=== PATIENT | female | born 1985 | race Caucasian/White ===

== ENCOUNTER 2020-10-03 20:43 | Emergency (ER) | payer OTHER, SELFPAY ==
--- NOTE | ~2020-10-03 | XR_ITS ---
EXAMINATION: XR wrist RT 2V INDICATION: Right wrist pain, initial encounter TECHNIQUE: Two views of the right wrist are obtained. COMPARISON: 06/30/2007 FINDINGS: There is a comminuted intra-articular fracture of the distal radius. The distal radius frac ture fragment is dorsally displaced and overriding. The carpal bones of the wrist are also dorsally d isplaced and overriding along with the distal radius fracture fragment. There appears to be a transve rse fracture of the ulnar styloid. IMPRESSION: 1. Comminuted distal radius fracture with dorsal displacement and overriding of the distal radius fra cture fragment as well as the carpal bones. Reviewed, dictated and finalized at location A. IMPRESSION: 1. Comminuted distal radius fracture with dorsal displacement and overriding of the distal radius fracture fragment as well as the carpal bones.
--- NOTE | ~2020-10-03 | XR_ITS ---
EXAMINATION: XR wrist RT 2V EXAM DATE: 10/03/2020 22:50 INDICATION: Post reduction. TECHNIQUE: Frontal and lateral projections of the right wrist Comparison is made to prior examinatio n from earlier same date. FINDINGS: There is been significant interval reduction in the previously seen right radial distal me taphyseal fracture. There is still mild posterior dislocation and angulation. A cast has been applied . IMPRESSION: Right radial distal metaphyseal reduction, casting. Reviewed, dictated and finalized at location A.
[2020-10-03 20:44] VITALS: BP 110/66; PULSE 80; RESP 20; TEMP 36; O2SAT 100
[2020-10-03 21:53] VITALS: BP 111/57; PULSE 80; RESP 18; TEMP 36.9; O2SAT 100
--- NOTE | 2020-10-03 21:55 | ED.UPPEXIN ---
HPI - Extremity Injury (Upper) General Chief Complaint: Extremity Injury, Upper Stated Complaint: Right wrist injury Time Seen by Provider: 10/03/20 21:33 Source: patient Mode of arrival: ambulatory Limitations: no limitations History of Present Illness HPI narrative: Patient is a 35-year-old female complaining of right wrist pain after she tripped and fell while rollerskating. Patient states her pain is a 9 out of 10, aching, nonradiating. Patient denies any other injuries. Patient denies any head, neck, back or any other extremity pain/injury. Related Data Home Medications Medication Instructions Recorded Confirmed escitalopram oxalate mg 10/03/20 Allergies Allergy/AdvReac Type Severity Reaction Status Date / Time No Known Allergies Allergy Verified 10/03/20 20:48 Review of Systems Review of Systems: All systems reviewed & are unremarkable except as noted in HPI and below Constitutional: Constitutional: Denies body ache(s), Denies chills, Denies excessive sweating, Denies fatigue, Denies fever(s), Denies headache(s), Denies lethargy, Denies malaise, Denies weakness and Denies weight loss Eyes: Eyes: Denies blurry vision, Denies change in vision and Denies loss of vision ENT: Denies dizziness, Denies ear discharge, Denies headache(s), Denies lip swelling, Denies epistaxis, Denies nasal congestion, Denies neck pain, Denies throat swelling and Denies tongue swelling Cardiovascular: Cardiovascular: Denies chest pain, Denies chest pain at rest, Denies chest pain with activity, Denies diaphoresis, Denies rapid heart rate, Denies edema, Denies irregular heart rhythm, Denies lightheadedness, Denies palpitations, Denies dyspnea and Denies dyspnea on exertion Respiratory: Respiratory: Denies chest congestion, Denies cough, Denies hemoptysis, Denies dyspnea and Denies dyspnea on exertion Gastrointestinal: Gastrointestinal: Denies abdominal pain, Denies melena, Denies hematochezia, Denies diarrhea, Denies nausea, Denies vomiting and Denies hematemesis Musculoskeletal: Musculoskeletal: Denies abnormal gait, Denies deformity, Denies neck pain and Denies numbness Neurologic: Denies Abnormal speech present, Denies abnormal gait, Denies confusion, Denies dizziness, Denies headache(s), Denies focal weakness, Denies loss of vision, Denies numbness, Denies Other visual disturbances, Denies Sensory deficit (Neuro) and Denies weakness Psychiatric: Psychiatric: Denies confusion, Denies depression, Denies auditory hallucinations, Denies homicidal ideation and Denies suicidal ideation Endocrine: Endocrine: Denies cold intolerance, Denies excessive sweating, Denies fatigue, Denies heat intolerance and Denies palpitations Hematologic/Lymphatic: Hematologic/Lymphatic: Denies easy bleeding and Denies easy bruising Allergic/Immunologic: Allergic/Immunologic: Denies lip swelling, Denies throat swelling and Denies tongue swelling PMFSH Comments Past medical history: None Family history: Noncontributory Social history: Non-smoker no EtOH or drug use. Exam Const: Other: Mild distress due to pain HENMT: Head: normal to inspection Eyes: Conjunctivae: conjunctivae normal Neck: Neck: normal visual inspection Resp: Effort & Inspection: normal respiratory effort Skin: General skin exam: normal color Rashes: no rashes Neuro: General: patient oriented x3 and moves all extremities Speech: normal speech Gait exam (Neuro): Normal gait present Extrem: Other: Right wrist deformity, swelling, decreased range of motion due to pain, pain on palpation. Neurovascular is intact bilateral upper extremities. Course Vital Signs Vital signs: Vital Signs Temperature 36.0 C L 10/03/20 20:44 Pulse Rate 80 10/03/20 20:44 Respiratory Rate 20 10/03/20 20:44 Blood Pressure 110/66 10/03/20 20:44 Pulse Oximetry 100 10/03/20 20:44 Temperature 36.9 C 10/03/20 21:53 Pulse Rate 80 10/03/20 21:53 Respiratory Rate 18 10/03/20 21
[2020-10-03] MEDS: HYDROcodone/acetaminophen (*CRX) 5-325 MG TABLET 2 TAB PO (22:09)
[2020-10-03] MEDS: KETOROLAC 30 MG/ML VIAL (*BKC) IM (22:09)
[2020-10-03 23:15] VITALS: BP 109/62; PULSE 84; RESP 18; TEMP 36.6; O2SAT 99
== END 2020-10-03 23:15 | disposition home or self-care (01) ==
PROVIDERS: Emergency Provider Emergency Medicine
DX: S52.571A Other intraarticular fracture of lower end of right radius, initial encounter for closed fracture (principal); S62.101A Fracture of unspecified carpal bone, right wrist, initial encounter for closed fracture; S52.611A Displaced fracture of right ulna styloid process, initial encounter for closed fracture; V00.121A Fall from non-in-line roller-skates, initial encounter; Y93.51 Activity, roller skating (inline) and skateboarding
CPT/HCPCS: 25605; 73100; 96372; 99285; A4565; A9270; J1885

== ENCOUNTER → 2020-10-07 01:26 | Outpatient (CLI) | payer OTHER, SELFPAY ==
[2020-10-07 21:08] LABS: SARS-CoV-2 RNA PCR Negative
== END ==
PROVIDERS: Visit Provider Orthopaedic Surgery
DX: Z01.812 Encounter for preprocedural laboratory examination (principal); Z20.822 Contact with and (suspected) exposure to COVID-19
CPT/HCPCS: C9803; U0003; U0005

== ENCOUNTER 2020-10-08 01:29 | Day surgery (SDC) | payer OTHER, SELFPAY ==
[2020-10-06 15:29] VITALS: BMI 21.7
[2020-10-08] VITALS (12 sets, daily range): BP systolic 100–116; BP diastolic 59–79; PULSE 60–80; RESP 11–20; TEMP 36.2–37.7; O2SAT 96–100
--- NOTE | ~2020-10-08 | XR_ITS ---
EXAMINATION: XR surgery orthopedic EXAM DATE: 10/08/2020 13:51 INDICATION: Right distal radial metaphyseal fracture, open reduction internal fixation. TECHNIQUE: Fluoroscopy used during XR surgery orthopedic performed by Dr. Jareth Lopez MD. Rad iologist was not present for the imaging or procedure. Total fluoroscopic time of 21 seconds The D AP for this procedure was 0.009 mGym2. A total of 3 images obtained for the exam. Correlation made to right wrist x-ray from 10/06. FINDINGS: Images demonstrate interval reduction in previously seen mildly posteriorly displaced righ t radial distal metaphyseal fracture. There is a volar plate with supporting screws in expected posit ion. Correlate with procedure note. IMPRESSION: Fluoroscopy used during right radial distal metaphyseal ORIF. Reviewed, dictated and finalized at location A.
--- NOTE | 2020-10-08 07:19 | WPDHPUPDATE1 ---
History and Physical Update Update Date/Time: 10/08/20 07:19 History and Physical has been reviewed, including an updated exam of the patient. There are NO changes in the patient's condition. Covid test negative. Risks, benefits, and alternatives have been discussed and questions answered. Patient agrees to proceed with procedure.
[2020-10-08] MEDS: ACETAMINOPHEN 500 MG TABLET 1000 MG PO (11:40)
[2020-10-08] MEDS: LACTATED RINGERS 1,000 ML 30 ML IV CONT ×2 (11:55→14:05)
[2020-10-08] MEDS: KETOROLAC 15 MG/ML VIAL (*BKC) IV PUSH (11:59)
--- NOTE | 2020-10-08 12:27 | WPDANESEPPF ---
Anes - Initial Pre Proc Eval Procedure: Operation Date: 10/08/20 12:30 Proposed Procedures p Open Reduction Internal Fixation Right Wrist - Jareth Lopez MD Date/Time: 10/08/20 12:27 Surgeon: Jareth Lopez MD Pre Op Diagnosis: Right Wrist Fx Patient Data Age: 35 Gender: F Height: 5 ft 6 in Weight: 68.4 kg Last Vital Signs Temp 37.7 C H 10/08/20 11:23 Pulse 68 10/08/20 11:23 Resp 16 10/08/20 11:23 BP 106/61 10/08/20 11:23 Pulse Ox 100 10/08/20 11:23 Allergies Allergy/AdvReac Type Severity Reaction Status Date / Time No Known Allergies Allergy Verified 10/06/20 13:32 Home Medications Medication Instructions Recorded Confirmed Type hydrocodone-acetaminophen 1 tablet PO Q6H PRN 10/06/20 10/08/20 History ibuprofen 400 mg PO Q6H 10/08/20 10/08/20 History Patient hx anesthesia problems: none Family hx anesthesia problems: none [facility] Past Medical History Medical History (Updated 10/08/20 @ 12:27 by Emre Ram MD) Chiari malformation Fracture of radius, distal, right, closed Surgical History Surgical History History of x4 Social History Social History Smoking status: Never smoker Alcohol intake: current Substance use: never Substance use type: does not use Living arrangements: with family Spiritual care concerns: No Anes - Eval Final PreProcedure Day of Procedure 10/08/20 12:27 Patient weight: normal Heart: regular rate and rhythm Lungs: clear to auscultation Airway: Mallampati scale class 1 Neurological: alert and oriented Last oral intake: >/= 8 hours ASA classification: II Emergent: no Anesthetic plan: proceed Anesthesia type and monitoring: general LMA and standard monitoring Informed Consent: The patient's anesthetic plan and its attendant risks and benefits were discussed with the patient/family/POA. Questions were solicited and answers provided to the satisfaction of the patient/family/POA.
[2020-10-08] MEDS: ceFAZolin 2 GM/D5W 50 ML 2 GM/50 ML BAG IVPB (12:56)
[2020-10-08] MEDS: BUPIVACAINE HCL 0.5% PF 30 ML VIAL INFILTRATE (13:13)
--- NOTE | 2020-10-08 13:53 | SUR.OPER ---
BIOMET DVR A SYSTEM RIGHT WRIST DVR ANATOMIC NARW SHORT RIGHT SMOOTH PEGS [id number] CORTICAL SCREWS [id number] 1
[2020-10-08] MEDS: fentaNYL CITRATE INJ (*CRX) 100 MCG/2 ML VIAL 25 MCG IV PUSH ×10 (14:29→15:25)
--- NOTE | 2020-10-08 14:32 | P.OP_ITS ---
Procedure Note - Detailed Date of procedure: 10/08/20 Pre-op diagnosis: Right Wrist Fx Comminuted fracture right distal radius Post-op diagnosis: same Procedure performed: open reduction internal fixation right distal radius, extra-articular Description of procedure: ndications: Patient is a 35-year-old woman who fell onto right outstretched hand and sustained a distal radius fracture with extra- articular extension and comminution. Fracture has displacement and angulation, unacceptable alignment. The patient presents for operative treatment. Full discussion of risks, benefits and alternatives had with the patient. Patient verbalized understanding and wishes to proceed. What was done: After informed consent the operative extremity was marked in the preoperative holding area. Patient received intravenous antibiotics. Patient taken to the operating room where they underwent general anesthesia. Positioned supine on operating table. Time-out performed confirming the patient, patient's site of surgery and the plan. Right upper extremity prepped and draped in the usual sterile surgical fashion using a ChloraPrep skin solution. Hand and wrist exsanguinated and arm tourniquet inflated to 225 mmHg. Standard volar flexor carpi radialis incision utilized. Fifteen blade knife used to make longitudinal incision. Flexor carpi radialis tendon identified tendon sheath incised in line with skin incision. Tendon retracted to protect the neurovascular elements. Floor of the tendon sheath incised with a 15 blade knife. Flexor pollicis retracted medial. pronator quadratus then divided off the watershed line and reflected ulnarward to expose the distal radius and the fracture. Fracture was then reduced provisionally pinned. Image intensification confirm reduction. Fixation achieved with the distal radius volar plate. This was provisionally pinned into place and confirmed with image intensification. Fixation to the proximal fragment with a 3.5 mm screw. Distal fracture fixation achieved with 2.0 mm locking pegs and 2.0 mm fully threaded locking screws for the radial styloid. Fixation was then completed proximally with the remaining 3.5 mm screws. Final reduction of the fracture, alignment of the wrist joint and placement of the hardware verified with image intensification. Wound thoroughly irrigated with antibiotic solution. Pronator repaired with 3 0 Monocryl interrupted suture. Skin closed with interrupted subcutaneous 000 Monocryl interrupted suture and running 000 Monocryl subcuticular stitch. Local anesthetic with 0.5% Marcaine. Sterile dressing applied. Padded dressing and splint then applied. Tourniquet released and good capillary refill noted in the fingers and thumb. Patient awoke from anesthesia, extubated and taken to the recovery room in stable condition. All sponge and instrument counts correct at the end of case. Implants: Biomet volar distal radius plate with locking pegs and screws Anesthesia: GLMA Surgeon: Jareth Loepz MD Catheter Finisher And Inspector: 1st virtual assistant for advertisers Estimated blood loss (mL): 10 Tourniquet time (min): 45 Drains: No Packing: No Pathology: none sent Complications: None Condition: stable Disposition: PACU
[2020-10-08] MEDS: oxyCODONE HCL (*CRX) 5 MG TAB IR PO (15:55)
== END 2020-10-08 16:52 | disposition home or self-care (01) ==
PROVIDERS: Visit Provider Orthopaedic Surgery
PROC: (CPT 25575; principal; 2020-10-08 12:30)
DX: S52.551A Other extraarticular fracture of lower end of right radius, initial encounter for closed fracture (principal); W19.XXXA Unspecified fall, initial encounter
CPT/HCPCS: 25607; A9270; C1713; J0690; J1100; J1170; J1885; J2250; J2405; J2704; J3010; J7120

== ENCOUNTER 2022-01-10 22:46 | Emergency (ER) | payer OTHER, SELFPAY ==
--- NOTE | ~2022-01-10 | XR_ITS ---
EXAMINATION: XR wrist RT min 3V DATE: 01/10/2022 23:02 INDICATION: Right wrist pain TECHNIQUE: Posteroanterior, ulnar deviation, oblique, and lateral views of the right wrist were obtai filiberto. COMPARISON: 10/06/2021 FINDINGS: Old healed distal right radial fracture which is in near-anatomic alignment with volar T plate and sc rew fixation. No surrounding lucency to suggest loosening or infection. No new fractures identified. Joint spaces are normal. No erosions or periosteal reaction. IMPRESSION: 1. Internally fixed old distal right radial fracture which is healed in essentially anatomic alignmen t. No acute osseous abnormality. Reviewed, dictated and finalized at location A. IMPRESSION: 1. Internally fixed old distal right radial fracture which is healed in essenti ally anatomic alignment. No acute osseous abnormality.
--- NOTE | 2022-01-11 01:42 | ED_ITS ---
HPI - Extremity Injury (Upper) General Chief Complaint: Extremity Injury, Upper Stated Complaint: right wrist pain Time Seen by Provider: 01/11/22 01:03 Source: patient Mode of arrival: ambulatory Limitations: no limitations History of Present Illness HPI narrative: This is a 36 year old female that presents to the ER for right wrist pain. Reports history of a fracture in this wrist for which she had ORIF with Dr. Lopez. Reports she was having similar pain in September of this year and had a steroid injection with little relief. She has been taking Ibuprofen as home with little relief. No new injury or trauma. Denies decreased range of motion or numbness. Related Data Allergies Allergy/AdvReac Type Severity Reaction Status Date / Time No Known Allergies Allergy Verified 01/10/22 22:46 Review of Systems Review of Systems: CONSTITUTIONAL: Denies fever SKIN: Denies rash MUSCULOSKELETAL: Reports joint pain, and myalgia. NEUROLOGIC: Denies numbness All systems reviewed & are unremarkable except as noted in HPI and below PMFSH Past Medical History Medical History (Updated 01/11/22 @ 01:49 by Una Corado PA-C) Chiari malformation De Quervain's tenosynovitis, right Fracture of radius, distal, right, closed Surgical History Surgical History History of x4 Social History Social History Alcohol intake: current Alcohol use details: Socially Substance use: never Substance use type: does not use Spiritual care concerns: No Exam Narrative: GENERAL: Well-appearing, well-nourished, and in no acute distress. HEAD: Normocephalic, atraumatic. EYES: EOMI. EXTREMITIES: Normal range of motion. No edema, erythema or warmth. Normal radial pulse. Normal sensation SKIN: Warm, dry, no rash. NEURO: No focal deficits. Alert and oriented x3. PSYCH: Normal mood and affect MDM - Extremity Injury (Upper) MDM Narrative Medical decision making narrative: Patient presents to the emergency department for right wrist pain. History of previous surgery on this wrist. She follows with Dr. Lopez. No new injury or trauma. She is neurovascularly intact. No erythema, edema, or warmth of the wrist. Will be given a short course of pain medication and instructed to follow-up with her orthopedic doctor. She was given warnings to return to the ER Imaging Data My impression: Right wrist x-ray: No acute osseous abnormalities Critical Care Time Critical Care Time Critical Care Time: No Discharge Plan Discharge Clinical Impression: Acute pain of right wrist Patient Disposition: Home, Self-Care Condition: Stable Instructions: Wrist Injury (ED) Additional Instructions: Return to the emergency department if you experience fever, redness and swelling of your wrist, numbness, or any other symptoms that are concerning to you Rest. Ice to the area. [id number] pain medication as needed. Prescribed pain medication as needed Follow-up with your orthopedic doctor Prescriptions: New hydrocodone-acetaminophen 5-325 mg tablet 1 tablet PO Q6H PRN (Reason: pain) Qty: 14 0RF Follow-up/Referrals: Jareth Lopez MD [Physician] - 3 Days PHYSICIAN,PRODUCT SAFETY ENGINEER [Primary Care Provider] -
[2022-01-11 02:00] VITALS: BP 136/79; PULSE 72; RESP 18; O2SAT 98
== END 2022-01-11 02:03 | disposition home or self-care (01) ==
PROVIDERS: Emergency Provider Emergency Medicine
DX: M25.531 Pain in right wrist (principal)
CPT/HCPCS: 73110; 99283

== ENCOUNTER 2022-07-27 10:51 | Emergency (ER) | payer OTHER, SELFPAY ==
--- NOTE | ~2022-07-27 | CT_ITS ---
EXAMINATION: CT brain wo con DATE: 07/27/2022 12:15 INDICATION: Headache TECHNIQUE: Computed tomography (CT) of the head was performed without intravenous contrast. Sagittal and coronal reconstructions were performed. The mA was adjusted according to patient size. Iterative reconstruction technique was employed. The dose-length product was 605.33 mGy-cm. COMPARISON: None FINDINGS: No acute intracranial hemorrhage, acute infarction or abnormal extra axial fluid collection. Ventricl es are normal and symmetric. No mass/mass effect. The orbits, paranasal sinuses and mastoid air cells are normal. IMPRESSION: 1. Normal head CT Reviewed, dictated and finalized at location A. E WORK CHECKER IMPRESSION: 1. Normal head CT
--- NOTE | ~2022-07-27 | XR_ITS ---
EXAMINATION: XR hand RT min 3V INDICATION: Right hand pain TECHNIQUE: Three views of the right hand are obtained. COMPARISON: 01/10/2022 FINDINGS: There is soft tissue swelling of the second and fourth fingers. No underlying osseous abnor mality is identified. Again seen is volar plate and screw fixation of the distal radius. No acute fra cture is identified. IMPRESSION: 1. Soft tissue swelling of the second and fourth fingers without underlying osseous abnormality ident ified. Reviewed, dictated and finalized at location B. ING TEACHER IMPRESSION: 1. Soft tissue swelling of the second and fourth fingers without underlying oss eous abnormality identified.
[2022-07-27 11:00] VITALS: BP 131/69; PULSE 67; RESP 18; TEMP 36.4; O2SAT 100
[2022-07-27 11:39] VITALS: BP 131/69; PULSE 67; RESP 18; TEMP 36.4; O2SAT 100
--- NOTE | 2022-07-27 11:42 | ED.HA ---
HPI - Headache General Chief Complaint: Headache <Una Corado PA-C - Last Filed: 07/27/22 14:51> Stated Complaint: head pain since monday <SAMEER Marquez Last Filed: 07/27/22 14:51> Time Seen by Provider: 07/27/22 11:21 <SAMEER Marquez Last Filed: 07/27/22 14:51> Source: patient <SAMEER Marquez Last Filed: 07/27/22 14:51> Mode of arrival: ambulatory <SAMEER Marquez Last Filed: 07/27/22 14:51> Limitations: no limitations <SAMEER Marquez Last Filed: 07/27/22 14:51> History of Present Illness HPI Narrative: This is a 37-year-old female that presents to the emergency department for headache ongoing over the last 2 days. No recent injuries or trauma. Reports the pain is sharp and constant in nature. It is somewhat relieved with ibuprofen. She has history of Chiari malformation and does have headaches chronically, although this 1 was a little different for her. She [facility] to see a neurologist for this [facility], but no longer follows up. Also reports she has had some swelling in her right second and fourth fingers over the last week. No recent injuries or trauma. They are not painful. She reports some mild itching. Denies fever, rash, redness, visual changes, vomiting, numbness, or weakness. <Una Corado PA-C - Last Filed: 07/27/22 14:51> Related Data Allergies/Adverse Reactions: Allergies Allergy/AdvReac Type Severity Reaction Status Date / Time No Known Allergies Allergy Verified 07/27/22 11:49 <SAMEER Marquez Last Filed: 07/27/22 14:51> Review of Systems Review of Systems: CONSTITUTIONAL: Denies fever EYES: Denies visual changes GASTROINTESTINAL: Denies vomiting SKIN: Denies rash NEUROLOGIC: Reports headache. Denies numbness, or weakness. <SAMEER Marquez Last Filed: 07/27/22 14:51> All systems reviewed & are unremarkable except as noted in HPI and below <Una Corado PA-C - Last Filed: 07/27/22 14:51> [facility] Past Medical History Medical History: Medical History (Updated 07/28/22 @ 00:00 by Gee Yoon) Chiari malformation De Quervain's tenosynovitis, right Fracture of radius, distal, right, closed <Una Corado PA-C - Last Filed: 07/27/22 14:51> Surgical History Surgical History: Surgical History History of x4 <SAMEER Marquez Last Filed: 07/27/22 14:51> Social History Social History: Social History Alcohol intake: current Alcohol use details: Socially Substance use: never Substance use type: does not use Living arrangements: with family Spiritual care concerns: No <Una Corado PA-C - Last Filed: 07/27/22 14:51> Exam Narrative: GENERAL: Well-appearing, well-nourished, and in no acute distress. HEAD: Normocephalic, atraumatic. EYES: PERRLA and EOMI. ENT: Nares clear, no rhinorrhea or epistaxis. Mucous membranes moist. Oropharynx without tonsillar hypertrophy exudate or other lesions. Bilateral TMs pearly lane non-bulging NECK: Supple. No adenopathy or masses. CHEST: Clear to auscultation. No respiratory distress. No wheezes rales or rhonchi HEART: Regular rate and rhythm. No murmur heard. Normal peripheral pulses. ABDOMEN: Soft, nontender, nondistended, normal active bowel sounds. EXTREMITIES: Normal range of motion. Very mild edema noted about the right second and fourth fingers about the PIP joints. No erythema or warmth. Strength equal in bilateral upper and lower extremities (5/5) SKIN: Warm, dry, no rash. NEURO: No focal deficits. Alert and oriented x3. Cranial nerves II through XII grossly intact PSYCH: Normal mood and affect <Una Corado PA-C - Last Filed: 07/27/22 14:51> Course Course Emergency Course: Patient updated on case findings. Agrees with plan of care <Una Corado PA-C -
[2022-07-27] MEDS: ACETAMINOPHEN 500 MG TABLET 1000 MG PO (12:11)
[2022-07-27 12:25] LABS: Basophils Absolute Auto 0.1 K/mm3 (0.0-0.1); Basophils Percent Auto 1.8 % (0.2-1.2); Eosinophils Absolute Auto 0.4 K/mm3 (0-0.3); Eosinophils Percent Auto 6.4 % (0-4.4); Hemoglobin 7.5 g/dL (12.0-15.0); Immature Granulocyte Absolute 0.02 K/mm3 (0.00-0.031); Immature Granulocyte Percent A 0.3 % (0-0.5); Immature Platelet Fraction Pct 7.1 % (0.9-11.2); Lymphocytes Absolute Auto 1.88 K/mm3 (0.9-3.2); Lymphocytes Percent Auto 27.5 % (18.3-44.2); Mean Corpuscular HGB Conc 28.8 g/dl (32-36); Mean Corpuscular Hemoglobin 20.3 pg (26-34); Mean Corpuscular Volume 70.3 fl (80-100); Mean Platelet Volume 11.1 fl (7.4-10.4); Monocytes Absolute Auto 0.6 K/mm3 (0.1-0.6); Monocytes Percent Auto 9.1 % (2.6-8.5); Neutrophils Absolute Auto 3.8 K/mm3 (1.3-6.7); Neutrophils Percent Auto 54.9 % (45.5-73.1); Platelet Count Result 265 k/mm3 (150-375); Red Cell Distribution Width 18.6 % (11.5-14.5); White Blood Count 6.8 K/mm3 (4.5-10.0)
[2022-07-27 12:37] LABS: Anion Gap 6 mmol/L (8-16); Blood Urea Nitrogen 9 mg/dL (7-17); Calcium 8.9 mg/dL (8.4-10.2); Carbon Dioxide 26 mmol/L (22-30); Chloride 108 mmol/L (98-107); Estimated CRCL calculation 103 ml/min; Estimated Glomerular Filt Rate > 60; Glucose 86 mg/dL (65-110); Potassium 3.7 mmol/L (3.4-5.0); Sodium 140 mmol/L (137-145)
[2022-07-27 12:41] LABS: CRP < 0.5 mg/dL (<1.0)
[2022-07-27 12:52] LABS: Anisocytosis 1+ (NORMAL); Hypochromasia 1+ (NORMAL); Platelet Estimate Adequate (Adequate); Poikilocytosis 1+ (NORMAL); Schistocytes None Seen (NORMAL)
[2022-07-27 13:36] LABS: Erythrocyte Sedimentation Rate 19 mm/hr (0-20)
[2022-07-27 14:45] VITALS: BP 119/70; PULSE 61; RESP 18; O2SAT 95
== END 2022-07-27 14:45 | disposition home or self-care (01) ==
PROVIDERS: Physician Assistant; Emergency Provider Emergency Medicine
DX: R51.9 Headache, unspecified (principal); D64.9 Anemia, unspecified; M79.89 Other specified soft tissue disorders
CPT/HCPCS: 36415; 70450; 73130; 80048; 85025; 85055; 85652; 86140; 99284; A9270

== ENCOUNTER 2022-08-17 15:49 | Outpatient (CLI) | payer OTHER, SELFPAY ==
[2022-08-17 16:05] LABS: Basophils Absolute Auto 0.1 K/mm3 (0.0-0.1); Basophils Percent Auto 1.4 % (0.2-1.2); Eosinophils Absolute Auto 0.4 K/mm3 (0-0.3); Eosinophils Percent Auto 5.6 % (0-4.4); Hematocrit 31.5 % (37.0-47.0); Hemoglobin 9.2 g/dL (12.0-15.0); Immature Granulocyte Absolute 0.02 K/mm3 (0.00-0.031); Immature Granulocyte Percent A 0.3 % (0-0.5); Immature Platelet Fraction Pct 6.8 % (0.9-11.2); Lymphocytes Absolute Auto 1.64 K/mm3 (0.9-3.2); Lymphocytes Percent Auto 21.4 % (18.3-44.2); Mean Corpuscular HGB Conc 29.2 g/dl (32-36); Mean Corpuscular Hemoglobin 21.5 pg (26-34); Mean Corpuscular Volume 73.6 fl (80-100); Mean Platelet Volume 10.8 fl (7.4-10.4); Monocytes Absolute Auto 0.7 K/mm3 (0.1-0.6); Monocytes Percent Auto 9.6 % (2.6-8.5); Neutrophils Absolute Auto 4.7 K/mm3 (1.3-6.7); Neutrophils Percent Auto 61.7 % (45.5-73.1); Platelet Count Result 308 k/mm3 (150-375); Red Blood Count 4.28 M/mm3 (4.2-5.4); Red Cell Distribution Width 23.2 % (11.5-14.5); White Blood Count 7.7 K/mm3 (4.5-10.0)
[2022-08-17 16:08] LABS: Anisocytosis 1+ (NORMAL); Hypochromasia 1+ (NORMAL); Ovalocytes 1+ (NORMAL); Platelet Estimate Adequate (Adequate); Poikilocytosis 1+ (NORMAL); Schistocytes None Seen (NORMAL)
[2022-08-17 16:30] LABS: Alanine Aminotransferase 21 U/L (6-35); Albumin Level 5.4 g/dL (3.5-5.1); Alkaline Phosphatase 52 U/L (38-126); Anion Gap 11 mmol/L (8-16); Aspartate Amino Transferase 38 U/L (14-36); Bilirubin,Total 0.5 mg/dL (0.2-1.3); Blood Urea Nitrogen 10 mg/dL (7-17); Calcium 9.6 mg/dL (8.4-10.2); Carbon Dioxide 24 mmol/L (22-30); Chloride 106 mmol/L (98-107); Estimated Glomerular Filt Rate > 60; Glucose 80 mg/dL (65-110); Potassium 3.8 mmol/L (3.4-5.0); Sodium 141 mmol/L (137-145)
[2022-08-17 16:44] LABS: Iron 29 ug/dL (37-170)
[2022-08-17 16:54] LABS: Percent Iron Saturation 5 % (20-50)
== END 2022-08-17 15:50 | disposition home or self-care (01) ==
LOC: ANHLAB 15:50
PROVIDERS: Visit Provider Internal Medicine Hematology & Oncology
DX: D64.9 Anemia, unspecified (principal)
CPT/HCPCS: 36415; 80053; 82607; 82728; 83540; 83550; 85025; 85055

== ENCOUNTER 2022-08-31 09:16 | Outpatient (CLI) | payer OTHER, SELFPAY ==
--- NOTE | ~2022-08-31 | US_ITS ---
EXAMINATION: US pelvic complete DATE: 08/31/2022 09:51 INDICATION: SEVERE ANEMIA TECHNIQUE: Multiple transabdominal and endovaginal sonographic images of the pelvis were obtained. COMPARISON: 09/09/2004, CT abdomen and pelvis 01/26/2016 FINDINGS: Uterus: 12.0 x 5.6 x 5.0 cm. Endometrial complex measures 4 mm. Right Ovary: 3.4 x 2.6 x 2.6 cm. Vascular flow is present. 2.5 cm simple cyst. Left Ovary: 3.2 x 2.3 x 2.1 cm. Vascular flow is present. There is no free fluid in the pelvis. IMPRESSION: Normal pelvic sonogram findings. Reviewed, dictated and finalized at location K. SHOVEL OPERATOR
== END 2022-08-31 09:17 | disposition home or self-care (01) ==
LOC: ANHIMG 09:19
PROVIDERS: PCP Emergency Medicine; Visit Provider Emergency Medicine
DX: D64.9 Anemia, unspecified (principal)
CPT/HCPCS: 76856

== ENCOUNTER 2023-05-09 03:43 | Emergency (ER) | payer OTHER, SELFPAY ==
--- NOTE | ~2023-05-09 | XR_ITS ---
Lumbosacral Spine: AP and lateral views Clinical History: Pain Findings: The normal lordotic curve is maintained. The vertebral bodies and posterior elements are i ntact. The intervertebral disc spaces are preserved. The sacroiliac joints are normally outlined. Impression: No significant abnormality. Reviewed, dictated and finalized at [facility]. [place] [employer] Impression: No significant abnormality.
[2023-05-09 03:47] VITALS: BP 134/80; PULSE 76; RESP 18; TEMP 36.3; O2SAT 100
[2023-05-09 04:36] VITALS: BP 119/74; PULSE 69; RESP 12; TEMP 36.6; O2SAT 100
[2023-05-09] MEDS: LIDOCAINE 5% PATCH 1 PATCH TRANSDERM (06:02)
[2023-05-09] MEDS: IBUPROFEN 600 MG TABLET PO (06:02)
[2023-05-09 06:34] VITALS: BP 124/66; PULSE 65; RESP 15; O2SAT 100
--- NOTE | 2023-05-09 06:35 | PC.NURSE ---
Patient states that her pain is 10/10 after ibuprofen and lidocaine patch. EDP Dr. Campbell notified.
[2023-05-09] MEDS: HYDROcodone/acetaminophen (*CRX) 5-325 MG TABLET 1 TAB PO (07:04)
--- NOTE | 2023-05-09 07:18 | ED.BACK ---
HPI - Back Pain/Injury General Chief Complaint: Back Pain/Injury Stated Complaint: lower back pain Time Seen by Provider: 05/09/23 07:04 Source: patient Limitations: no limitations History of Present Illness HPI Narrative: Patient is a 37-year-old female present to the emergency department complaining of back pain. Patient states that she first noticed the back pain upon waking up on Monday and has not gone away, it radiates from her right lower back down to her posterior mid thigh. Patient is been trying [id number] Tylenol for the discomfort without any significant relief. Patient admits to a possible history this in the past but has never had any formal diagnosis and it usually just goes away. 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 Patient denies urinary continence, stool incontinence, saddle anesthesia, numbness, weakness, abdominal pain, fever, nausea, vomiting, history of cancer, chest pain, shortness of breath, recent illness. Related Data Home Medications Medication Instructions Recorded Confirmed ferrous sulfate 325 mg (65 mg 325 mg PO BID 09/14/22 09/16/22 iron) tablet (iron) Allergies Allergy/AdvReac Type Severity Reaction Status Date / Time No Known Allergies Allergy Verified 05/09/23 03:49 Review of Systems Review of Systems: A 10 system review of systems was completed on the patient and is negative except for what is stated in the HPI. Nursing and ancillary documentation was reviewed. [facility] Past Medical History Medical History (Updated 05/09/23 @ 07:20 by Jeb Dallas DO) Chiari malformation De Quervain's tenosynovitis, right Fracture of radius, distal, right, closed Surgical History Surgical History History of x4 Social History Social History Smoking status: Never smoker Alcohol intake: current Alcohol use details: Socially Substance use: never Substance use type: does not use Living arrangements: with family Spiritual care concerns: No Comments At time of signature, I have reviewed and agree with nursing past medical, surgical, social and family history unless otherwise noted. Please see the nursing chart for further information. There is no relevant family history pertinent to the presenting complaint. Exam Narrative: CONST: No acute distress. Well nourished. HENMT: Head is normocephalic and atraumatic. Moist mucous membranes. No posterior oropharynx erythema. EYES: No conjunctival icterus, injection, or pallor. PERRL. NECK: No meningeal signs. RESP: Able to speak in full sentences. Normal respiratory effort. CTAB. CARDIO: Regular rate. Regular rhythm. 2+ DP and radial pulses bilaterally. GI: Nondistended. No tenderness to palpation. Soft. : No CVA tenderness to palpation. SKIN: No rashes or lesions noted on exposed skin. NEURO: Oriented x3. Moves all extremities. No saddle anesthesia. Sensation intact to light touch throughout bilateral lower extremities. Motor strength is 5/5 bilateral lower extremities. EXTREM/MSK/BACK: No pedal edema. No midline vertebral tenderness to palpation or step-offs. Mild right paralumbar muscle spasms. Negative straight leg raise bilaterally. PSYCH: Normal affect. Course Vital Signs Vital signs: Vital Signs Temperature 97.4 F L 05/09/23 03:47 Pulse Rate 76 05/09/23 03:47 Respiratory Rate 18 05/09/23 03:47 Blood Pressure 134/80 05/09/23 03:47 Pulse Oximetry 100 05/09/23 03:47 Oxygen Delivery Room Air 05/09/23 03:47 Temperature 97.8 F 05/09/23 04:36 Pulse Rate 74 05/09/23 07:37 Respiratory Rate 14 05/09/23 07:37 Blood Pressure 120/80 05/09/23 07:37 Pulse Oximetry 100 05/09/23 07:37 Oxygen Delivery Room Air 05/09/23 03:47 MDM - Back Pain/Injury MDM Na
[2023-05-09] MEDS: KETOROLAC 30 MG/ML VIAL (*BKC) 15 MG IM (07:36)
[2023-05-09 07:37] VITALS: BP 120/80; PULSE 74; RESP 14; O2SAT 100
[2023-05-09] MEDS: diazePAM (*CRX) 5 MG TABLET PO (07:37)
== END 2023-05-09 07:46 | disposition home or self-care (01) ==
LOC: ANHED 07:22
PROVIDERS: Emergency Provider Student in an Organized Health Care Education/Training Program; PCP Emergency Medicine
DX: M54.16 Radiculopathy, lumbar region (principal); S39.012A Strain of muscle, fascia and tendon of lower back, initial encounter; X58.XXXA Exposure to other specified factors, initial encounter
CPT/HCPCS: 72100; 81025; 96372; 99283; A9270; J1885